=== PATIENT | female | born 2005 | race Hispanic/Latino ===

== ENCOUNTER 2025-07-28 11:16 | Emergency (ER) | payer SELFPAY ==
[2025-07-28] MEDS ORDERED: Methotrexate Sodium/PF 50 MG (2 mL) VIAL IM SCH (14:00)
== END 2025-07-28 14:54 | disposition home or self-care (01) ==
LOC: CSHERS 11:16
DX: O00.90 Unspecified ectopic pregnancy without intrauterine pregnancy (principal)
CPT/HCPCS: 36415; 76856; 84702; 96372; J9250